=== PATIENT | male | born 1955 | race Caucasian/White ===

== ENCOUNTER → 2017-11-17 | Day surgery (SDC) | payer OTHER ==
[~2017-11-17] VITALS: Ht 182.9 cm; Wt 88.9 kg
[~2017-11-17] MED LIST: ASPI-482 PO; ATOR10TA60 PO; BUPIVACAINE MPF 0.5% 30 ML VIAL. ONE; CHOL100013 PO; COQ10 PO; DEXAMETHASONE SOD PHOS 20 MG/5 ML VIAL. ONE; GUAI600T47 PO; HYDR-2762 PO; HYDROmorphone 2 MG/ML VIAL IV PRN; IBUP-1007 PO; IV RINGERS,LACTATED 1000ML 1,000 ML IV SCH; LIDOCAINE 1% PF 2 ML VIAL. ID PRN; MAGNESIUM/POTASSIUM PO; MIDAZOLAM HCL/PF 2 MG/2 ML VIAL. ONE; MORPHINE SULFATE 2 MG/ML VIAL. IV PRN; MULT1TAB97 PO; ONDA4SOL2 PO; ONDA4TAB10 SL; ONDANSETRON PF 4 MG/2 ML VIAL. IV PRN; ONDANSETRON PF 4 MG/2 ML VIAL. ONE; OXYC-323 PO; PROCHLORPERAZINE 10 MG/2 ML VIAL. IV PRN; PROPOFOL 20 ML IV ONE; SCOPOLAMINE 1.5MG PATCH. TD ONE; WARF2TAB96 PO; WARF6TAB49 PO; astelin NAS; ePHEDrine PF IN SALINE 50 MG/5 ML DISP.SYRIN IV ONE; fentaNYL PF VIAL 100 MCG/2 ML VIAL IV PRN; fentaNYL PF VIAL 100 MCG/2 ML VIAL ONE; oxyCODONE/APAP 5/325 1 TAB TABLET ONE; oxyCODONE/APAP 5/325 1 TAB TABLET PO PRN
--- NOTE | 2017-11-17 14:00 | PDOC4 ---
Operative Note Operative Note Date of surgery: 11/17/2017 Preoperative diagnosis: Partial-thickness rupture left distal biceps insertion Postoperative diagnosis: Full-thickness tendon rupture with only about a half centimeter retraction and surrounding scar tissue attachment Operative procedure: Debridement, takedown and left distal biceps repair Surgeon: Montez And assist: Nae Anesthesia: Gen. 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 He initially injured it a few months ago and it was treated nonoperatively but really aggravated recently as detailed in my clinic note. MRI had shown a partial thickness tear of the distal biceps at its insertion and since this has been very limiting for him with extreme pain on even any small resistance of elbow flexion or supination and ongoing lack of improvement we had talked about exploration and possible takedown distal biceps repair as it appeared at a minimum that he has a partial- thickness tear severe tendinosis. I had gone over with him risks benefits postoperative course including the possibility of nonhealing infection nerve or blood vessel damage continued pain and weakness medical or other anesthetic complications among others all his questions were answered consent was obtained and he agrees to proceed with operative evaluation and treatment. Operative text: Patient was identified procedure verified patient placed in the supine position on the operating table. After adequate amounts of general anesthesia were administered the left upper extremity was prepped and draped in standard sterile fashion and after timeout was performed the left upper extremity was exsanguinated by Esmarch bandage and a sterile tourniquet was placed on the left upper extremity with tourniquet inflated to 250 mmHg. A transverse incision was made just distal to the elbow flexion crease dissection carried out to protect neurovascular structures in the biceps tendon sheath area was located. He was noted to have radial extension of a fluid-filled area which had encompassed an area where there was partial separation of the distal biceps insertion on the radial tuberosity there was some surrounding scar tissue but overall significant compromise of the distal biceps insertion. The remaining scar tissue was excised the tendon was trimmed back to stable tissue and was stitched with expressed braid suture distally. The [employer] jugular lock system was used drilling initially the guidewire in the radial tuberosity with the arm fully supinated and then over drilling an 8 mm guide to the proximal cortex only. The toggle lock 2.9 mm was set and the expressed braid suture tied over the saddle area and after thorough irrigation carried out normal saline solution the arm was held in supination brought into flexion and the tendon was brought into the drilled area with the traction suture. Aspers had been previously brought through the distal tendon with a grasping suture and tied together and finally the traction suture for the toggle lock was tied with an arthroscopic knot pusher for extra support. Sutures were cut at the interface thorough irrigation again carried out normal saline solution the repair was tested throughout full elbow flexion and extension pronation supination and found to be intact with appropriate tension closure accomplished with buried Vicryl suture subcuticular 30 strata fix Monocryl sterile soft dressings were applied patient was returned recovery room in stable condition having tolerated procedure well fingers were noted be warm pink find deflation of tourniquet. Nae ramseycashier assistant was present for the procedure assisted in prepping draping retraction and skin closure VAISHALI WOO MD Nov 17, 2017 14:00
--- NOTE | 2017-11-17 14:08 | DISCH ---
DISCHARGE INSTRUCTIONS Condition on Discharge Condition on Discharge: Stable Activity After Discharge Activity Instructions for Disc: Other, see below (fine motor use of left arm with maximum 5 pound lifting limit) Other activity instructions: encourage full range of motion of elbow in extension and twisting Lifting Instructions after Dis: No heavy lifting, No pulling or pushing Diet after Discharge Diet after Discharge: Regular Diet Texture: Regular Wound Incision Care Wound/Incision Care: Change dressing (May remove dressing in 3 days may then shower no soaking until follow-up appointment) Contacting the [facility] after DC Call your doctor for: Concerns you may have Follow-Up Follow up with: Montez 1 week Treatment/Equipment after DC Adaptive Equipment Issued: None VAISHALI WOO MD Nov 17, 2017 14:08
[2017-11-17 14:30] VITALS: BP 134/83
== END | disposition home or self-care (01) ==
LOC: SURG 07:21
PROVIDERS: ATTEND Orthopaedic Surgery
DX: S46.212A Strain of muscle, fascia and tendon of other parts of biceps, left arm, initial encounter (principal); E78.00 Pure hypercholesterolemia, unspecified; Z95.5 Presence of coronary angioplasty implant and graft; Z96.641 Presence of right artificial hip joint; Z79.899 Other long term (current) drug therapy; X58.XXXA Exposure to other specified factors, initial encounter; Y93.89 Activity, other specified; Y92.89 Other specified places as the place of occurrence of the external cause; Y99.8 Other external cause status
CPT/HCPCS: 24341; 76000; C1713; J0690; J1100; J2250; J2405; J2704; J3010; J3490

== ENCOUNTER 2017-11-21 08:22 | Emergency (ER) | payer OTHER ==
[~2017-11-21] VITALS: Ht 182.9 cm; Wt 89.4 kg
[~2017-11-21 08:22] MED LIST changes: -BUPIVACAINE MPF 0.5% 30 ML VIAL. ONE; -DEXAMETHASONE SOD PHOS 20 MG/5 ML VIAL. ONE; -HYDROmorphone 2 MG/ML VIAL IV PRN; -IV RINGERS,LACTATED 1000ML 1,000 ML IV SCH; -LIDOCAINE 1% PF 2 ML VIAL. ID PRN; -MIDAZOLAM HCL/PF 2 MG/2 ML VIAL. ONE; -MORPHINE SULFATE 2 MG/ML VIAL. IV PRN; -ONDA4TAB10 SL; -ONDANSETRON PF 4 MG/2 ML VIAL. IV PRN; -ONDANSETRON PF 4 MG/2 ML VIAL. ONE; -PROCHLORPERAZINE 10 MG/2 ML VIAL. IV PRN; -PROPOFOL 20 ML IV ONE; -SCOPOLAMINE 1.5MG PATCH. TD ONE; -ePHEDrine PF IN SALINE 50 MG/5 ML DISP.SYRIN IV ONE; -fentaNYL PF VIAL 100 MCG/2 ML VIAL IV PRN; -fentaNYL PF VIAL 100 MCG/2 ML VIAL ONE; -oxyCODONE/APAP 5/325 1 TAB TABLET ONE; -oxyCODONE/APAP 5/325 1 TAB TABLET PO PRN
[2017-11-21 08:25] VITALS: BP 138/75
--- NOTE | 2017-11-21 08:42 | PHYS DOC ---
Adult General Chief Complaint Chief Complaint: OTHER COMPLAINTS HPI HPI Patient is a 62 year old male who presents concerned he could have a surgical wound infection. Patient states he had biceps surgery done on 11/17/[address] Herrmann. He states this morning he noted yellow pussy drainage from the incision site. Patient denies any fever. He is also complaining of increased pain to the surgical site. He states he took oxycodone prior to coming to the ED. Review of Systems Review of Systems Constitutional: Denies fever or chills [] Eyes: Denies change in visual acuity, redness, or eye pain [] HENT: Denies nasal congestion or sore throat [] Respiratory: Denies cough or shortness of breath [] Cardiovascular: No additional information not addressed in HPI [] GI: Denies abdominal pain, nausea, vomiting, bloody stools or diarrhea [] : Denies dysuria or hematuria [] Musculoskeletal: Denies back pain or joint pain [] Integument: Infected incision site Neurologic: Denies headache, focal weakness or sensory changes [] All other systems were reviewed and found to be within normal limits, except as documented in this note. Allergies Allergies Allergies Coded Allergies Type Severity Reaction Last Updated Verified No Known Drug Allergies 11/17/17 No Physical Exam Physical Exam Constitutional: Well developed, well nourished, no acute distress, non-toxic appearance. [] HENT: Normocephalic, atraumatic, bilateral external ears normal, oropharynx moist, no oral exudates, nose normal. [] Eyes: PERRLA, EOMI, conjunctiva normal, no discharge. [] Neck: Normal range of motion, no tenderness, supple, no stridor. [] Cardiovascular:Heart rate regular rhythm, no murmur [] Lungs & Thorax: Bilateral breath sounds clear to auscultation [] Abdomen: Bowel sounds normal, soft, no tenderness, no masses, no pulsatile masses. [] Skin: Warm, dry, left proximal forearm ventral aspect with a well approximated laceration site. Trace amount of bloody serosanguineous drainage noted no puss. Full range of motion to the left forearm. Adequate radial medial and ulnar sensation to the left forearm. +2 left radial pulse. Back: No tenderness, no CVA tenderness. [] Extremities: No tenderness, no cyanosis, no clubbing, ROM intact, no edema. [] Neurologic: Alert and oriented X 3, normal motor function, normal sensory function, no focal deficits noted. [] Psychologic: Affect normal, judgement normal, mood normal. [] Current Patient Data Vital Signs Vital Signs Date Time Temp Pulse Resp B/P (MAP) Pulse Ox O2 Delivery O2 Flow Rate FiO2 11/21/17 08:25 97.7 65 16 138/75 (96) 97 Room Air 97.7 EKG EKG [] Radiology/Procedures Radiology/Procedures [] Course & Med Decision Making Course & Med Decision Making Pertinent Labs and Imaging studies reviewed. (See chart for details) This is a 62-year-old male patient presenting to the ED today he has an infected surgical incision site. He had biceps surgery done on 11/19/2017 08:47 Dr. Hein in the Ed with patient. Dr. Hein wrote patient a prescription for tramadol and Bactrim. Patient will be discharged to home and follow up with the clinic. Patient was given return precautions. Dragon Disclaimer Dragon Disclaimer This electronic medical record was generated, in whole or in part, using a voice recognition dictation system. Departure Departure Impression: Primary Impression: Visit for wound check Disposition: HOME, SELF-CARE Condition: STABLE Referrals: JILL JHA DO (PCP) VAISHALI HERRMANN MD Please schedule an appointment follow-up with Dr. Herrmann as discussed with Dr. Hein Patient Instructions: Wound Check Additional Instructions: Your laceration site is healing well. Keep the area clean and dry. Take antibiotics until completed. Monitor the area for any worsening condition including increased redness, warmth over the area, yellow drainage over the area , return to the emergency room if they occur. Also return to the emergency room if you have a fever. Continue taking your pain medicines as needed for pain. Scripts Ondansetron (ZOFRAN ODT) 4 Mg Tab.rapdis 1 TAB SL Q8HRS, #15 TAB Prov: NILAY DRAKE LILY 11/21/17 NILAY DRAKE LILY Nov 21, 2017 08:42
[2017-11-21] MEDS ORDERED: ONDA4TAB10 SL (09:05)
--- NOTE | 2017-11-21 09:27 | PDOC2 ---
CONSULT Date of Consult Date of Consult DATE: 11/21/17 TIME: 09:21 Reason for Consult Reason for Consult: Left elbow pain Referring Physician Referring Physician: Vaishali Flowers Identification/Chief Complaint Chief Complaint Left elbow pain Source Source: Caregiver, Patient History of Present Illness Reason for Visit: Patient is a very pleasant 62-year-old gentleman who underwent left distal biceps repair with my colleague a couple days ago. He is accompanied to the emergency department by his daughter who is a nurse, according to family. He tells me that over the past several hours, starting last night, he has noticed worsening swelling and pain at his left elbow. He has not any fevers or chills. 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 He feels like he has had some drainage at the areas well. He feels like his fingers are little stiff and sore in addition to that. Past Medical History Cardiovascular: AFIB, HTN Pulmonary: Other (REGINALDO) Musculoskeletal: Osteoarthritis ENT: Sincusitis Past Surgical History Past Surgical History: Appendectomy, CABG, Total hip replacement, Tonsillectomy , Other (left distal biceps repair less than 1 week ago; sinus surgery) Family History Family History: Hypertension Social History No ALCOHOL: rare Drugs: None Current Problem List Problem List Problems Medical Problems: (1) Visit for wound check Status: Acute Current Medications Current Medications Active Scripts Active Zofran Odt (Ondansetron) 4 Mg Tab.rapdis 1 Tab SL Q8HRS Percocet 5-325 Mg Tablet (Oxycodone/Acetaminophen) 1 Each Tablet 1 Tab PO PRN Q4HRS PRN Reported [Magnesium/Potassium] 200 Mg PO DAILY Ibuprofen 600 Mg Tablet 600 Mg PO PRN PRN [Coq10] 200 Mg PO DAILY Atorvastatin Calcium 10 Mg Tablet 1 Tab PO QHS Daily Multiple Vitamin (Multivitamin) 1 Each Tablet 1 Each PO DAILY Took this am at 0900. Next dose tomorrow. Vitamin D (Cholecalciferol (Vitamin D3)) 1,000 Unit Capsule 5,000 Units PO DAILY None taken today, may take tomorrow. Allergies Allergies: Coded Allergies: No Known Drug Allergies (Unverified , 11/17/17) ROS General: No: Chills, Night Sweats, Fatigue, Malaise, Appetite, Other PSYCHOLOGICAL ROS: No: Anxiety, Behavioral Disorder, Concentration difficultie , Decreased libido, Depression, Disorientation, Hallucinations, Hostility, Irritablity, Memory difficulties, Mood Swings, Obsessive thoughts, Physical abuse, Sexual abuse, Sleep disturbances, Suicidal ideation, Other Eyes: No Blurry vision, No Decreased vision, No Double vision, No Dry eyes, No Excessive tearing, No Eye Pain, No Itchy Eyes, No Loss of vision, No Photophobia , No Scotomata, No Uses contacts, No Uses glasses, No Other HEENT: No: Heacaches, Visual Changes, Hearing change, Nasal congestion, Nasal discharge, Oral lesions, Sinus pain, Sore Throat, Epistaxis, Sneezing, Snoring, Tinnitus, Vertigo, Vocal changes, Other ALLERGY AND IMMUNOLOGY: No: Hives, Insect Bite Sensitivity, Itchy/Watery Eyes, Nasal Congestion, Post Nasal Drip, Seasonal Allergies, Other ENDOCRINE: No: Breast Changes, Galactorrhea, Hair Pattern Changes, Hot Flashes , Malaise/lethargy, Mood Swings, Palpitations, Polydipsia/polyuria, Skin Changes , Temperature Intolerance, Unexpected Weight Changes, Other Respiratory: No: Cough, Hemoptysis, Orthopnea, Pleuritic Pain, Shortness of breath, SOB with excertion, Sputum Changes, Stridor, Tachypnea, Wheezing, Other Cardiovascular: No Chest Pain, No Palpitations, No Orthopnea, No Paroxysmal Noc. Dyspnea, No Edema, No Lt Headedness, No Other Gastrointestinal: No Nausea, No Vomiting, No Abdominal Pain, No Diarrhea, No Constipation, No Melena, No Hematochezia, No Other Genitourinary: No Dysuria, No Frequency, No Incontinence, No Hematuria, No Retention, No Discharge, No Urgency, No Pain, No Flank Pain, No Other, No , No , No , No , No , No , No Musculoskeletal: Yes Joint Pain, Yes Joint Stiffness Neurological: No Behavorial Changes, No Bowel/Bladder ControlChng, No Confusion , No Dizziness, No Gait Disturbance, No Headaches, No Impaired Coord/balance, No Memory Loss, No Numbness/Tingling, No Seizures, No Speech Problems, No Tremors, No Visual Changes, No Weakness, No Other Physical Exam General: Alert, Oriented X3 HEENT: Atraumatic, EOMI Lungs: Other (respirations aren't labored with symmetric chest rise) Heart: Regular rate, No murmurs Abdomen: Soft, No tenderness Extremities: No edema, Normal pulses Neuro: Normal speech, Sensation intact, Other (motor intact median, radial, ulnar nerves left hand) Psych/Mental Status: Mental status NL, Mood NL MUSCULOSKELETAL: Other (he has approximately a 68 cm incision over his left antecubital fossa. He has some scattered surrounding ecchymosis. He has one area of 5 mm x 3 mm of redness at the lateral portion of the incision, the remainder of the incision appears to be healing very appropriate. There is no surrounding induration. There is no fluctuance. I'm unable to express any fluid. He is tender over this area and his forearm musculature. Mild edema at his forearm and fingers.) Vitals VITALS Vital Signs Date Time Temp Pulse Resp B/P (MAP) Pulse Ox O2 Delivery O2 Flow Rate FiO2 11/21/17 08:25 97.7 65 16 138/75 (96) 97 Room Air 97.7 Assessment/Plan Assessment/Plan I discussed with he and his daughter that everything appears to be healing properly. I'm concerned that he has been overdoing it. I encouraged rest and sling use with gentle active assisted range of motion. As a precaution, we will send him out on Bactrim. We did also discuss pain medication usage, he does not really like taking the oxycodone that frequently and therefore we discussed using tramadol. Worrisome signs and symptoms that should prompt a phone call to my office or return trip to the emergency department were discussed and he and his daughter's questions were answered. He'll be discharged home from the emergency department. He will keep his regularly scheduled follow-up appointment with Dr. Herrmann, but again, he will contact myself should he worsen before then. JANAY CASTRO II, MD Nov 21, 2017 09:27
== END 2017-11-21 09:20 | disposition home or self-care (01) ==
LOC: ER 08:22
DX: T81.41XA Infection following a procedure, superficial incisional surgical site, initial encounter (principal); Y83.8 Other surgical procedures as the cause of abnormal reaction of the patient, or of later complication, without mention of misadventure at the time of the procedure; Y92.89 Other specified places as the place of occurrence of the external cause
CPT/HCPCS: 99283